=== PATIENT | male | born 1935 | race Caucasian/White ===

== ENCOUNTER 2016-11-18 06:03 | Inpatient (IN) | payer MEDICARE, OTHER ==
[~2016-11-18] VITALS: Ht 175.3 cm; Wt 81.2 kg
--- NOTE | 2016-11-18 06:05 | NUR ---
TO BED 4 BIB PARAMEDICS C/O L SIDED CEST PAIN RADIATING TO LEFT ARM 1 HR WARP CLAMPER. PT AAOX4 NO ACUTE DISTRESS NOTED, RESP EVEN AND UNLABORED, SKIN WARM NONDIAPHORETIC. PT WAS GIVEN ASPIRIN 162MG AND NITRO SPRAY X2 BY EMS WARP CLAMPER. PLACE PT ON CARDIAC MONITORING, CONTINUOUS POX.
--- NOTE | 2016-11-18 06:09 | NUR ---
DAPHNEY ZEE AT BEDSIDE TO ISAÍAS CAGE.
--- NOTE | 2016-11-18 06:13 | NUR ---
Dr Bustos at bedside to eval patient.
--- NOTE | 2016-11-18 06:15 | NUR ---
STARTED SL 18G TO R FOREARM, BLOOD DRAWN AND SENT TO LAB.
--- NOTE | 2016-11-18 06:25 | NUR ---
PT DAUGHTER AT BEDSIDE.
[2016-11-18] MEDS ORDERED: NITROGLYCERIN PACKET 1 GM PACKET ONE (06:27)
[2016-11-18] MEDS ORDERED: ASPIRIN 81 MG TAB.CHEW ONE (06:27)
[2016-11-18] MEDS ORDERED: ONDANSETRON HCL/PF 4 MG/2 ML VIAL IVP ONE (06:30)
[2016-11-18] MEDS ORDERED: MORPHINE SULFATE INJ 2 MG/ML DISP.SYRIN IV ONE (06:30)
[2016-11-18] MEDS ORDERED: ASPIRIN 325 MG TABLET PO ONE (06:30)
[2016-11-18] MEDS ORDERED: NITROGLYCERIN PACKET 1 GM PACKET TD ONE (06:30)
--- NOTE | 2016-11-18 06:30 | NUR ---
PT MEDICATED ORDERED.
[2016-11-18 06:47] LABS: BASOPHILS % (AUTO) 0.3 % (0.0-2.0); EOSINOPHILS # (AUTO) 0.3 /CMM (0.0-0.7); EOSINOPHILS % (AUTO) 5.3 % (0.0-6.0); HEMATOCRIT 36 % (39-51); HEMOGLOBIN 12.6 g/dL (13.5-17.5); LYMPHOCYTES # (AUTO) 2.1 /CMM (0.8-4.8); LYMPHOCYTES % (AUTO) 32.4 % (20.0-44.0); MEAN CORPUSCULAR HEMOGLOBIN 31 PG (26.0-33.0); MEAN CORPUSCULAR HGB CONC 35 g/dl (31.0-36.0); MEAN CORPUSCULAR VOLUME 87 fL (80-96); MONOCYTES # (AUTO) 0.5 /CMM (0.1-1.30); MONOCYTES % (AUTO) 8.5 % (2.0-12.0); NEUTROPHILS # (AUTO) 3.4 /CMM (1.8-8.9); NEUTROPHILS % (AUTO) 53.5 % (43.0-81.0); PLATELET COUNT (AUTO) 232 /CMM (150-450); RDW COEFFICIENT OF VARIATION 12.9 (11.5-15.0); RED BLOOD CELL COUNT(AUTO) 4.12 MIL/uL (4.5-6.0); WHITE BLOOD COUNT (AUTO) 6.4 K/uL (4.3-11.0)
[2016-11-18 06:48] LABS: CALCIUM, SERUM 8.6 mg/dL (8.5-10.1); CARBON DIOXIDE 27 mmol/L (21-32); CHLORIDE 109 mmol/L (98-107); CREATININE 0.9 mg/dL (0.6-1.3); GLUCOSE 98 mg/dL (74-106); POTASSIUM 3.7 mmol/L (3.5-5.1); SODIUM SERUM 145 mmol/L (136-145); UREA NITROGEN, BLOOD 31 mg/dL (7-18)
[2016-11-18 06:59] LABS: TROPONIN I 0.019 ng/mL (0.00-0.056)
[2016-11-18 07:01] LABS: INR 0.9 (0.87-1.13); PROTHROMBIN TIME 9.6 SECS (9.5-12.7)
--- NOTE | 2016-11-18 07:21 | NUR ---
REPORT GIVEN TO AM SHIFT GINA SANCHEZ.
--- NOTE | 2016-11-18 07:27 | NUR ---
PATIENT ON BED, VSS. AT BS
[2016-11-18] MEDS ORDERED: BENA40TA2 PO (07:31)
[2016-11-18] MEDS ORDERED: ASPI81TA2 PO (07:31)
[2016-11-18] MEDS ORDERED: SIMV40TA5 PO (07:31)
--- NOTE | 2016-11-18 08:05 | NUR ---
REPORT GIVEN TO GINA JOHNSON FOR CONTINUITY OF CARE
--- NOTE | 2016-11-18 08:15 | NUR ---
MS/RN New admission Patient admitted from emergency room with diaminos of chest pain. Patient fully admitted, awaiting further orders from Dr Ferguson.
[2016-11-18 08:30] VITALS: BP 133/55
[2016-11-18] MEDS ORDERED: LORAZEPAM 1 MG TABLET PO PRN (10:00)
[2016-11-18] MEDS: BENAZEPRIL HCL 20 MG TABLET PO SCH (10:00)
[2016-11-18] MEDS ORDERED: MORPHINE SULFATE INJ 2 MG/ML DISP.SYRIN IV PRN ×2 (10:00)
[2016-11-18] MEDS ORDERED: ONDANSETRON HCL/PF 4 MG/2 ML VIAL IVP PRN (10:00)
[2016-11-18] MEDS ORDERED: NITROGLYCERIN PACKET 1 GM PACKET TD PRN (10:00)
[2016-11-18] MEDS ORDERED: ACETAMINOPHEN 325 MG TABLET PO PRN (10:00)
[2016-11-18 10:29] LABS: IRON, SERUM 60 ug/dl (50-175); TOTAL IRON BINDING CAPACITY 200 ug/dl (250-450)
[2016-11-18 11:32] LABS: CHOLESTEROL 152 mg/dL (<200); HDL CHOLESTEROL 50 mg/dL (40-60); LDL 87 mg/dL (0-99); TRIGLYCERIDES 65 mg/dL (30-150)
[2016-11-18 12:00] VITALS: BP 123/58
[2016-11-18] MEDS: ISOSORBIDE MONONITRATE (30MG) 30 MG TAB.SR.24H PO SCH (15:49)
--- NOTE | 2016-11-18 15:52 | NUR ---
SENIOR MANUFACTURING ENGINEER Notes: - Imdur not given this time, due to decreased BP ( 111/54), patient still on the Nitropaste patch applied in ER.
[2016-11-18 16:00] VITALS: BP 111/54
--- NOTE | 2016-11-18 16:09 | NUR ---
- BATTERY TESTER AND REPAIRER Notes: - Patient was explained on the rationale of the SCD'S , & was actually applying them on but patient informed documenting RN that he prefers them applied during the NOC since he goes bathroom less during that time. Will report to NOC shift.
[2016-11-18] MEDS ORDERED: SIMVASTATIN 40 MG TABLET PO SCH (18:00)
--- NOTE | 2016-11-18 18:20 | NUR ---
SERVICE OBSERVER Notes: -patient just completed his dinner, denies pain, non-labored respirations, still on TELE, ambulated to bathroom without problems.
--- NOTE | 2016-11-18 19:27 | NUR ---
STEEL ERECTOR APPRENTICE NOTES RECEIVED RESTING COMFORTABLY ON BED,A/O X 4,DENIES CHEST PAIN AT THE MOMENT, NITRO PASTE IN PLACE.SALINE LOCK RFA INTACT AND PATENT. SCD HOLD AT THE MOMENT.PATIENT WANTS IT AT NIGHT TIME.BED ON LOW POSITION AND LOCK.CALL LIGHT IN REACH,NEEDS ANTICIPATED.
[2016-11-18 20:00] VITALS: BP 122/56
[2016-11-18] MEDS ORDERED: CARVEDILOL 3.125 MG TABLET PO SCH (21:00)
--- NOTE | 2016-11-18 21:00 | NUR ---
HEMSTITCHER NOTES OFFERED DVT PUMP BUT REFUSED.HE SAID HE WILL CALL WHEN HES READY FOR IT
--- NOTE | 2016-11-18 23:00 | NUR ---
TRACK REPAIR SUPERVISOR NOTES ASK DR YAO IF HE WANTS TO ORDER CHEMICAL PROPHYLAXIS,MADE AWARE OF DVT SCORE OF 3,THAT PATIENT HAS HX OF [place] 2008.MADE AWARE ALSO THAT PATIENT WAS SEEN BY CARDIO DR ARCINIEGA.HE SAID TO JUST VERIFY WITH DR ARCINIEGA WHY HE DIDNT ORDER CHEMICAL PROHYLAXIS.WILL FOLLOW UP IN THE MORNING.
[2016-11-19] VITALS: BP 116/56
[2016-11-19 00:06] VITALS: BP 116/56
[2016-11-19 04:23] VITALS: BP 120/58
[2016-11-19 06:50] LABS: BASOPHILS % (AUTO) 0.1 % (0.0-2.0); EOSINOPHILS # (AUTO) 0.3 /CMM (0.0-0.7); EOSINOPHILS % (AUTO) 3.9 % (0.0-6.0); HEMATOCRIT 33 % (39-51); HEMOGLOBIN 11.6 g/dL (13.5-17.5); LYMPHOCYTES # (AUTO) 1.6 /CMM (0.8-4.8); LYMPHOCYTES % (AUTO) 24.1 % (20.0-44.0); MEAN CORPUSCULAR HEMOGLOBIN 31 PG (26.0-33.0); MEAN CORPUSCULAR HGB CONC 35 g/dl (31.0-36.0); MEAN CORPUSCULAR VOLUME 88 fL (80-96); MONOCYTES # (AUTO) 0.5 /CMM (0.1-1.30); MONOCYTES % (AUTO) 7.5 % (2.0-12.0); NEUTROPHILS # (AUTO) 4.2 /CMM (1.8-8.9); NEUTROPHILS % (AUTO) 64.4 % (43.0-81.0); PLATELET COUNT (AUTO) 211 /CMM (150-450); RDW COEFFICIENT OF VARIATION 12.7 (11.5-15.0); WHITE BLOOD COUNT (AUTO) 6.5 K/uL (4.3-11.0)
[2016-11-19 06:52] VITALS: BP 141/60
--- NOTE | 2016-11-19 07:00 | NUR ---
PEDIATRICIAN NOTES FAIRLY RESTED AT NIGHT.NO CHANGE IN STATUS.REPORT GIVEN TO ALEX FUENTES FOR JEAN.
[2016-11-19 07:06] LABS: AMYLASE 42 U/L (25-115); CALCIUM, SERUM 8.6 mg/dL (8.5-10.1); CARBON DIOXIDE 26 mmol/L (21-32); CHLORIDE 108 mmol/L (98-107); CREATININE 0.8 mg/dL (0.6-1.3); GLUCOSE 89 mg/dL (74-106); LIPASE 167 U/L (73-393); MAGNESIUM 1.9 mg/dL (1.8-2.4); PHOSPHORUS 2.8 mg/dL (2.5-4.9); POTASSIUM 3.8 mmol/L (3.5-5.1); SODIUM SERUM 143 mmol/L (136-145); UREA NITROGEN, BLOOD 23 mg/dL (7-18)
--- NOTE | 2016-11-19 07:24 | NUR ---
MS/RN Patient received Patient received from shift stacker. Denies any further episodes of chest pain or discomfort. All needs attended. Call light within reach, will continue to monitor.
[2016-11-19 08:00] VITALS: BP 141/60
[2016-11-19 08:25] VITALS: BP 141/60
[2016-11-19] MEDS: BENAZEPRIL HCL 20 MG TABLET PO SCH (08:25)
[2016-11-19] MEDS: ISOSORBIDE MONONITRATE (30MG) 30 MG TAB.SR.24H PO SCH (08:25)
--- NOTE | 2016-11-19 08:27 | NUR ---
MS/RN Medications Morning medications administered as ordered.
[2016-11-19] MEDS ORDERED: ASPIRIN 81 MG TAB.CHEW PO SCH (09:00)
[2016-11-19] MEDS ORDERED: Isosorbide Mononitrate (30MG) PO (11:37)
--- NOTE | 2016-11-19 11:45 | NUR ---
MS/RN S/B Dr Ferguson Seen by Dr Ferguson - patient to be discharged to home, new prescription written and provided to patient for imdur SR.
--- NOTE | 2016-11-19 12:08 | NUR ---
MS/vp integrity Patient discharged to home in stable condition. Heplock, tele and name bands removed. Exit care printed and signed by patient. Education about signs and symptoms and when to return to the emergency room provided to patient, who stated that he understood. also at bedside and educated. Instructed to make follow up appointment for 5-10 days with primary care doctor (Dr Lundy). Per patient, stated that he would make his own appointment and at this time did not have the phone number of the office as this information was on his cell phone. Escorted to front door by LI, with Radha providing transport.
== END 2016-11-19 12:00 | disposition home or self-care (01) | DRG 303 ==
LOC: ER 06:05 → TELE 07:58
PROVIDERS: ADMIT Internal Medicine; ATTEND Internal Medicine
DX: I25.119 Atherosclerotic heart disease of native coronary artery with unspecified angina pectoris (principal); D63.8 Anemia in other chronic diseases classified elsewhere; I45.10 Unspecified right bundle-branch block; I10 Essential (primary) hypertension; E78.5 Hyperlipidemia, unspecified; I25.2 Old myocardial infarction; Z79.82 Long term (current) use of aspirin; Z79.899 Other long term (current) drug therapy; Z87.891 Personal history of nicotine dependence; Z98.61 Coronary angioplasty status
CPT/HCPCS: 36415; 71010-TC; 80048-TC; 80061-TC; 82150-TC; 83540-TC; 83690-TC; 83735-TC; 84100-TC; 84484-TC; 85025-TC; 85730-TC; 87081-TC; 93307-TC; A4606; Z7610

== ENCOUNTER 2020-07-11 22:03 | Emergency (ER) | payer BC, MEDICARE ==
[~2020-07-11] VITALS: Ht 177.8 cm; Wt 78.9 kg
[~2020-07-11 22:03] MED LIST: ASPI-1169 PO; BENA40TA8 PO; Isosorbide Mononitrate (30MG) PO; SIMV-49 PO
[2020-07-11] MEDS ORDERED: TDAP [DIPH/PERTUSSIS/TET] 0.5 ML VIAL IM ONE ×2 (22:18→22:30)
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
[2020-07-11] MEDS ORDERED: ACET325C7 PO (22:40)
[2020-07-11 22:54] VITALS: BP 124/76
== END 2020-07-11 22:55 | disposition home or self-care (01) ==
LOC: ER 22:09
DX: S01.01XA Laceration without foreign body of scalp, initial encounter (principal); S09.8XXA Other specified injuries of head, initial encounter; R51.9 Headache, unspecified; I10 Essential (primary) hypertension; Z95.5 Presence of coronary angioplasty implant and graft; Z79.82 Long term (current) use of aspirin; Z79.899 Other long term (current) drug therapy; Y04.8XXA Assault by other bodily force, initial encounter; Y93.01 Activity, walking, marching and hiking; Y92.89 Other specified places as the place of occurrence of the external cause; Y99.8 Other external cause status
CPT/HCPCS: 12002; 70450; 90471; 90715; 99284; A6403

== ENCOUNTER 2020-07-18 19:15 | Emergency (ER) | payer SELFPAY ==
[~2020-07-18] VITALS: Ht 177.8 cm; Wt 78.9 kg
[~2020-07-18 19:15] MED LIST changes: +ACET325C7 PO
[2020-07-18 20:35] VITALS: BP 148/68
== END 2020-07-18 20:52 | disposition home or self-care (01) ==
LOC: ER 19:23
DX: S01.01XD Laceration without foreign body of scalp, subsequent encounter (principal); I10 Essential (primary) hypertension; Z95.5 Presence of coronary angioplasty implant and graft; Z79.82 Long term (current) use of aspirin; Z79.899 Other long term (current) drug therapy; X58.XXXD Exposure to other specified factors, subsequent encounter

== ENCOUNTER 2021-04-10 07:40 | Inpatient (IN) | payer MEDICARE, BC ==
[~2021-04-10] VITALS: Ht 177.8 cm; Wt 76.7 kg
--- NOTE | 2021-04-10 07:40 | NUR ---
BIB RA 102 FROM HOME C/O CHEST TIGHTNESS, HEADACHE THAT STARTED AT 0300. ASPIRIN 325 GIVEN AUDITOR IN CHARGE AND RELIEVED CHEST TIGHTNESS. PT DENIES PAIN AND STATED IT DOES NOT RADIATE ANYWHERE. BLOOD PRESSURE WAS ELEVATED, MD AWARE. BREATHING IS EVEN AND UNLABORED, NO SOB NOTED, PT ON ROOM AIR.
--- NOTE | 2021-04-10 07:48 | NUR ---
IV ESTABLISHED R WRIST 20G. LABS WERE DRAWN AND COLLECTED AT BEDSIDE.
--- NOTE | 2021-04-10 08:18 | NUR ---
MOVE SHEET SUBMITTED.
--- NOTE | 2021-04-10 08:21 | NUR ---
RN ELIZABETH LABS AT BEDSIDE. TRANSPORTED TO MAIN LAB, PROCESSING
--- NOTE | 2021-04-10 08:22 | NUR ---
MARKY-COV2 SPEC COLLECTED BY LAB AT BEDSIDE
[2021-04-10 08:28] LABS: BASOPHILS % (AUTO) 0.5 % (0.0-2.0); EOSINOPHILS % (AUTO) 2.7 % (0.0-6.0); HEMATOCRIT 39 % (39-51); HEMOGLOBIN 13.4 g/dL (13.5-17.5); LYMPHOCYTES # (AUTO) 1.2 K/uL (0.8-4.8); LYMPHOCYTES % (AUTO) 20.8 % (20.0-44.0); MEAN CORPUSCULAR HGB CONC 34 g/dl (31.0-36.0); MEAN CORPUSCULAR VOLUME 90 fL (80-96); MONOCYTES # (AUTO) 0.5 K/uL (0.1-1.30); MONOCYTES % (AUTO) 8.1 % (2.0-12.0); NEUTROPHILS # (AUTO) 3.9 K/uL (1.8-8.9); NEUTROPHILS % (AUTO) 67.9 % (43.0-81.0); PLATELET COUNT (AUTO) 220 K/uL (150-450); RED BLOOD CELL COUNT(AUTO) 4.35 MIL/uL (4.5-6.0); WHITE BLOOD COUNT (AUTO) 5.8 K/uL (4.3-11.0)
[2021-04-10 08:48] LABS: CALCIUM, SERUM 8.8 mg/dL (8.5-10.1); CARBON DIOXIDE 28 mmol/L (21-32); CHLORIDE 104 mmol/L (98-107); CREATININE 1.1 mg/dL (0.6-1.3); GLUCOSE 98 mg/dL (74-106); SODIUM SERUM 140 mmol/L (136-145); UREA NITROGEN, BLOOD 20 mg/dL (7-18)
[2021-04-10] MEDS: ASPIRIN 81 MG TAB.CHEW PO SCH (09:32)
[2021-04-10] MEDS ORDERED: ASPIRIN 81 MG TAB.CHEW ONE (09:37)
[2021-04-10] MEDS ORDERED: ONDANSETRON HCL/PF 4 MG/2 ML VIAL IVP PRN (10:30)
[2021-04-10] MEDS ORDERED: MORPHINE SULFATE INJ 2 MG/ML DISP.SYRIN IV PRN (10:30)
[2021-04-10] MEDS ORDERED: HYDROCODONE/APAP 5/325MG TABLET PO PRN (10:30)
[2021-04-10] MEDS ORDERED: NITROGLYCERIN 0.4 MG/TAB BOTTLE SL PRN (10:30)
[2021-04-10] MEDS ORDERED: Z GUARD REMEDY 4 OZ OINT TP PRN (10:30)
[2021-04-10] MEDS ORDERED: ACETAMINOPHEN 325 MG TABLET PO PRN (10:30)
[2021-04-10] MEDS ORDERED: TEMAZEPAM 15 MG CAPSULE PO PRN (10:30)
[2021-04-10] MEDS ORDERED: MAGNESIUM HYDROXIDE 30 ML UDC PO PRN (10:30)
[2021-04-10] MEDS ORDERED: MAG HYDROX/AL HYDROX/SIMETH 30 ML UDC PO PRN (10:30)
--- NOTE | 2021-04-10 10:31 | NUR ---
Jack coyle in [facility] - 04/10/21 at 1840 by SUYAPA SPOKE TO NILES RAZA [phone]
--- NOTE | 2021-04-10 10:31 | NUR ---
SPOKE TO PT HANNAH [phone]
[2021-04-10] MEDS ORDERED: ENOXAPARIN SODIUM 40 MG/0.4 ML DISP.SYRIN SQ ONE (10:33)
[2021-04-10] MEDS: ENOXAPARIN SODIUM 40 MG/0.4 ML DISP.SYRIN SQ SCH (10:41)
[2021-04-10] MEDS: METOPROLOL TARTRATE 50 MG TABLET PO SCH ×2 (12:13→18:00)
[2021-04-10] MEDS ORDERED: METOPROLOL TARTRATE 50 MG TABLET ONE ×2 (12:37→17:57)
--- NOTE | 2021-04-10 12:40 | NUR ---
SPOKE TO SON MARILUZ [phone] WHO WOULD LIKE TO KNOW WHEN HIS FATHER IS TAKEN TO A ROOM WELL
--- NOTE | 2021-04-10 15:28 | NUR ---
PT RESTING COMFORTABLY IN BED, EASY TO AROUSE
--- NOTE | 2021-04-10 17:22 | NUR ---
GOT BED 316-1 AFTER CHANGE OF SHIFT.
[2021-04-10] MEDS ORDERED: SIMVASTATIN 40 MG TABLET PO SCH (18:00)
[2021-04-10] MEDS ORDERED: SIMVASTATIN 20 MG TABLET ONE (18:04)
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
--- NOTE | 2021-04-10 20:01 | NUR ---
REPORT GIVEN TO FINN
--- NOTE | 2021-04-10 20:03 | NUR ---
THE , HANNAH AND SON, MARILUZ WERE NOTIFIED THAT HE HAD GOTTEN A ROOM.
[2021-04-10 20:30] VITALS: BP 161/56
--- NOTE | 2021-04-10 20:35 | NUR ---
pt transferred with ACLS protocol.
--- NOTE | 2021-04-10 21:00 | NUR ---
DIE CUTTER APPRENTICE NOTES: RECEIVED PATIENT FROM ER VIA BED. AT BEDSIDE. PATIENT IS ALERT AND ORIENTED TO PERSON, PLACE, TIME AND SITUATION. CLEAR SPEECH, COMMUNICATIVE AND COOPERATIVE. [place], NO HEARING AIDS. LUNG SOUNDS CTA THROUGHOUT. STRONG AND PALPABLE DP AND RADIAL PULSES. NO PERIPHERAL EDEMA OBSERVED. ABD SOFT AND NON-TENDER, BS NORMOACTIVE X4. NAD AND VSS. EXTERNAL LEAD ETL DEVELOPER PLACED. DENIES PAIN. VS FOLLOWS: 161/56, 60, 18, 98.0, SpO2 98% ON RA. R FA IV FLUSHED WITHOUT COMPLICATION AND NO S/SX OF INFILTRATION. DRESSING TO SITE C/D/I. BED PLACED IN LOW, LOCKED POSITION. HOB ELEVATED 2O DEGREES FOR COMFORT. FLUIDS AT BEDSIDE TABLE. PATIENT DRINKING INDEPENDENTLY. PATIENT ORIENTED TO ROOM, CALL LIGHT, BED/TV REMOTE. DEMONSTRATES ABILITY TO USE CALL LIGHT AND VERBALIZE NEEDS EFFECTIVELY. CALL LIGHT WITHIN REACH. DISCUSSED ADMISSION PROCESS AND ASSESSMENT, PATIENT AGREEABLE AND GOOD HISTORIAN. DISCUSSED POLST. PATIENT'S WISHES ARE FULL CODE STATUS.
[2021-04-10 21:31] VITALS: BP 161/56
[2021-04-11] VITALS: BP 160/70
[2021-04-11] MEDS: METOPROLOL TARTRATE 50 MG TABLET PO SCH ×5 (01:14→23:06)
[2021-04-11] MEDS: IV NS 0.9% 1,000 ML IV PRN ×2 (01:16→11:48)
[2021-04-11] MEDS ORDERED: PANTOPRAZOLE 40 MG TABLET.DR PO ONE (06:16)
[2021-04-11] MEDS: PANTOPRAZOLE 40 MG TABLET.DR PO SCH (06:17)
[2021-04-11 06:36] LABS: BASOPHILS % (AUTO) 0.5 % (0.0-2.0); EOSINOPHILS % (AUTO) 4.3 % (0.0-6.0); HEMATOCRIT 36 % (39-51); HEMOGLOBIN 12.8 g/dL (13.5-17.5); LYMPHOCYTES # (AUTO) 1.8 K/uL (0.8-4.8); LYMPHOCYTES % (AUTO) 31.5 % (20.0-44.0); MEAN CORPUSCULAR HGB CONC 35 g/dl (31.0-36.0); MEAN CORPUSCULAR VOLUME 89 fL (80-96); MONOCYTES # (AUTO) 0.6 K/uL (0.1-1.30); MONOCYTES % (AUTO) 9.9 % (2.0-12.0); NEUTROPHILS # (AUTO) 3.1 K/uL (1.8-8.9); NEUTROPHILS % (AUTO) 53.8 % (43.0-81.0); PLATELET COUNT (AUTO) 190 K/uL (150-450); RED BLOOD CELL COUNT(AUTO) 4.11 MIL/uL (4.5-6.0); WHITE BLOOD COUNT (AUTO) 5.7 K/uL (4.3-11.0)
--- NOTE | 2021-04-11 07:25 | NUR ---
RN OPENING NOTE RECEIVED PATIENT IN BED. A/O X4. ON ROOM AIR, TOLERATING WELL. DENIES SOB. IN NO APPARENT DISTRESS. SB TO SR ON THE TELE MONITOR. R FA #20 G, NS RUNNING AT 100 ML/HR, INTACT AND PATENT. SAFETY MEASURES MAINTAINED. BED IN LOWEST POSITION, BRAKES LOCKED. SIDE RAILS UP X2. CALL LIGHT WITHIN REACH. WILL CONTINUE PLAN OF CARE.
[2021-04-11 07:28] LABS: CALCIUM, SERUM 8.5 mg/dL (8.5-10.1); MAGNESIUM 2.2 mg/dL (1.8-2.4); POTASSIUM 3.8 mmol/L (3.5-5.1)
--- NOTE | 2021-04-11 07:43 | NUR ---
PHOTOGRAPH TINTER CLOSING NOTES: REPORTED OFF TO ONCOMING RN. PATIENT IN NAD AND VSS AT THIS TIME. TELEMETRY READING SR/SB. PATIENT DENIES PAIN. MENTATION TO BASELINE. BED IN LOW, LOCKED POSITION. DEMONSTRATES ABILITY TO USE CALL LIGHT AND VERBALIZE NEEDS EFFECTIVELY. CALL LIGHT AND FREQUENTLY USED ITEMS WITHIN REACH.
[2021-04-11 08:00] VITALS: BP 155/58
[2021-04-11 08:48] LABS: THYROID STIMULATING HORMONE 3.625 uIU/mL (0.358-3.74)
[2021-04-11] MEDS: ENOXAPARIN SODIUM 40 MG/0.4 ML DISP.SYRIN SQ SCH (08:52)
[2021-04-11] MEDS: ASPIRIN 81 MG TAB.CHEW PO SCH (08:53)
[2021-04-11] MEDS: BENAZEPRIL HCL 20 MG TABLET PO SCH (08:53)
[2021-04-11 16:00] VITALS: BP 131/48
[2021-04-11] MEDS: SIMVASTATIN 20 MG TABLET PO SCH (17:06)
--- NOTE | 2021-04-11 18:43 | NUR ---
RN CLOSING NOTE PATIENT RESTING IN BED. A/O X4. ON ROOM AIR, TOLERATING WELL. DENIES SOB. NO S/S OF RESPIRATORY DISTRESS. R FA #20 G, NS RUNNING AT 100 ML/HR, INTACT AND PATENT. DUE MEDS GIVEN ORDERED. ALL NEEDS HAVE BEEN MET AND ATTENDED. SAFETY MEASURES MAINTAINED. BED IN LOWEST POSITION, BRAKES LOCKED. SIDE RAILS UP X2. CALL LIGHT WITHIN REACH. WILL ENDORSE CONTINUITY OF CARE TO ONCOMING SHIFT.
--- NOTE | 2021-04-11 19:00 | NUR ---
MS RN OPENING NOTE: RECEIVED REPORT. ASSESSED PATIENT. NO CHANGE IN PATIENT'S DISPOSITION FROM PREVIOUS CLOSING NOTE ASSESSMENT. FAMILY ( AND DAUGHTER) AT BEDSIDE. PATIENT DENIES CP OR EPIGASTRIC DISTRESS, MENTATION TO BASELINE. DEMONSTRATES ABILITY TO USE CALL LIGHT AND VERBALIZE NEEDS EFFECTIVELY. CALL LIGHT, FLUIDS AND FREQUENTLY USED ITEMS WITHIN REACH.
[2021-04-11 20:00] VITALS: BP 130/51
[2021-04-12] MEDS: PANTOPRAZOLE 40 MG TABLET.DR PO SCH (06:06)
[2021-04-12] MEDS: METOPROLOL TARTRATE 50 MG TABLET PO SCH ×4 (06:07→23:20)
[2021-04-12 06:28] LABS: BASOPHILS % (AUTO) 0.8 % (0.0-2.0); EOSINOPHILS % (AUTO) 3.7 % (0.0-6.0); HEMATOCRIT 35 % (39-51); HEMOGLOBIN 12.2 g/dL (13.5-17.5); LYMPHOCYTES # (AUTO) 1.7 K/uL (0.8-4.8); LYMPHOCYTES % (AUTO) 30.7 % (20.0-44.0); MEAN CORPUSCULAR HGB CONC 35 g/dl (31.0-36.0); MEAN CORPUSCULAR VOLUME 89 fL (80-96); MONOCYTES # (AUTO) 0.5 K/uL (0.1-1.30); MONOCYTES % (AUTO) 9.3 % (2.0-12.0); NEUTROPHILS # (AUTO) 3.1 K/uL (1.8-8.9); NEUTROPHILS % (AUTO) 55.5 % (43.0-81.0); PLATELET COUNT (AUTO) 170 K/uL (150-450); RED BLOOD CELL COUNT(AUTO) 3.91 MIL/uL (4.5-6.0); WHITE BLOOD COUNT (AUTO) 5.6 K/uL (4.3-11.0)
--- NOTE | 2021-04-12 06:58 | NUR ---
MS RN CLOSING NOTE: PATIENT SLEPT WELL THROUGHOUT THE NIGHT. EASILY AROUSED TO VOICE COMMAND. A&OX4. NAD AND VSS. DENIES CHEST PAIN AND NO S/SX OF SOB/RESPIRATORY DISTRESS. IV TO R FA #20 INFUSING NS @ 100ML/HR. NO INFILTRATION/ERYTHEMA NOTES TO OR SURROUNDING INSERTION SITE. DRESSING C/D/I. BED IN LOW, LOCKED POSITION. SIDE RAILS UP X2. DEMONSTRATES ABILITY TO USE CALL LIGHT AND VERBALIZE NEEDS EFFECTIVELY. CALL LIGHT AND FREQUENTLY USED ITEMS WITHIN REACH.
[2021-04-12 07:02] LABS: CALCIUM, SERUM 8.5 mg/dL (8.5-10.1); CREATININE 1.1 mg/dL (0.6-1.3); POTASSIUM 3.6 mmol/L (3.5-5.1)
--- NOTE | 2021-04-12 07:21 | NUR ---
MS RN OPENING NOTE RECEIVED PATIENT IN BED. A/O X4. BREATHING EVENLY AND NONLABORED ON ROOM AIR, TOLERATING WELL. DENIES SOB. IN NO APPARENT DISTRESS. PATIENT NPO FOR PROCEDURE R FA #20 G, NS RUNNING AT 100 ML/HR, INTACT AND PATENT. SAFETY MEASURES MAINTAINED. BED IN LOWEST POSITION, BRAKES LOCKED. SIDE RAILS UP X2. CALL LIGHT WITHIN REACH. WILL CONTINUE TO MONITOR
[2021-04-12] MEDS: ASPIRIN 81 MG TAB.CHEW PO SCH (08:06)
[2021-04-12] MEDS: BENAZEPRIL HCL 20 MG TABLET PO SCH (08:07)
[2021-04-12] MEDS: ENOXAPARIN SODIUM 40 MG/0.4 ML DISP.SYRIN SQ SCH (08:07)
[2021-04-12] MEDS ORDERED: NITROGLYCERIN 0.4 MG/TAB BOTTLE SL ONE (09:00)
[2021-04-12] MEDS ORDERED: METOPROLOL TARTRATE INJ 5 MG/5 ML AMPUL IVP PRN (09:00)
[2021-04-12] MEDS ORDERED: METOPROLOL TARTRATE INJ 5 MG/5 ML AMPUL ONE (09:05)
[2021-04-12] MEDS ORDERED: IOHEXOL-350 100 ML VIAL IV ONE ×2 (09:09→09:37)
[2021-04-12 09:13] VITALS: BP 140/60
[2021-04-12] MEDS ORDERED: IV NS 0.9% 250 ML IV ONE (09:37)
--- NOTE | 2021-04-12 11:27 | NUR ---
RN NOTE METOPROLOL DUE HELD PER PARAMETERS OF HR @ 45. WILL CONTINUE TO MONITOR
[2021-04-12 15:56] VITALS: BP 160/67
[2021-04-12] MEDS: SIMVASTATIN 20 MG TABLET PO SCH (17:12)
--- NOTE | 2021-04-12 18:26 | NUR ---
MS RN CLOSING NOTE PATIENT IN BED. A/O X4. BREATHING EVENLY AND NONLABORED ON ROOM AIR, TOLERATING WELL. DENIES SOB. IN NO APPARENT DISTRESS. PATIENT NPO FOR PROCEDURE R FA #20 G, NS RUNNING AT 100 ML/HR, INTACT AND PATENT. ALL MEDICATIONS GIVEN ORDERED. SAFETY MEASURES MAINTAINED. BED IN LOWEST POSITION, BRAKES LOCKED. SIDE RAILS UP X2. CALL LIGHT WITHIN REACH. WILL ENDORSE TO ONCOMING SHIFT
[2021-04-12 19:00] VITALS: BP 181/67
--- NOTE | 2021-04-12 19:05 | NUR ---
MS RN OPENING NOTE: RECEIVED REPORT. ASSESSED PATIENT. PATIENT ADAMANTLY REFUSING IV FLUIDS TO THE POINT OF BECOMING IRATE YELLING, "I DON'T WANT IV FLUIDS!!! I AM FINE WITHOUT THEM!!! I TOLD THEM I DON'T WANT THEM AND I WANT IT OFF!!" NS INFUSION HELD PER PATIENT'S REFUSAL. OTHERWISE PATIENT'S VSS, PATIENT DENIES CHEST PAIN. R FA #20 TO SL. R AC #18 TO SL. BOTH FLUSHED AND WITHOUT S/SX OF INFILTRATION/ERYTHEMA TO OR SURROUNDING INSERTION SITE. BED IN LOW, LOCKED POSITION. SIDE RAILS UP X2. DEMONSTRATES ABILITY TO USE CALL LIGHT AND VERBALIZE NEEDS EFFECTIVELY. CALL LIGHT WITHIN REACH.
[2021-04-13 03:09] VITALS: BP 148/68
[2021-04-13] MEDS: METOPROLOL TARTRATE 50 MG TABLET PO SCH ×4 (06:25→23:04)
--- NOTE | 2021-04-13 06:27 | NUR ---
MS RN CLOSING NOTE PATIENT LYING IN BED, EASILY AROUSED TO VOICE COMMAND. ALERT AND ORIENTED X4. VSS, NAD, DENIES CHEST PAIN AT THIS TIME. R FA #20 TO SL. R AC #18 TO SL D/T PATIENT'S REFUSAL OF CONTINUOUS IV FLUIDS. NO S/SX OF INFILTRATION/ERYTHEMA TO OR SURROUNDING INSERTION SITE. BED IN LOW, LOCKED POSITION. SIDE RAILS UP X2. DEMONSTRATES ABILITY TO USE CALL LIGHT AND VERBALIZE NEEDS EFFECTIVELY. CALL LIGHT WITHIN REACH.
[2021-04-13] MEDS: PANTOPRAZOLE 40 MG TABLET.DR PO SCH (06:46)
--- NOTE | 2021-04-13 07:16 | NUR ---
MS RN OPENING NOTE RECEIVED PATIENT IN BED. A/O X4. BREATHING EVENLY AND NONLABORED ON ROOM AIR, TOLERATING WELL. DENIES SOB. IN NO APPARENT DISTRESS. NO PAIN OR DISCOMFORT. IV ACCESS NOTED ON R FA #20 G, NS RUNNING AT 100 ML/HR, INTACT AND PATENT. SAFETY MEASURES MAINTAINED. BED IN LOWEST POSITION, BRAKES LOCKED. SIDE RAILS UP X2. CALL LIGHT WITHIN REACH. WILL CONTINUE TO MONITOR
[2021-04-13 08:00] VITALS: BP 169/76
[2021-04-13] MEDS: ASPIRIN 81 MG TAB.CHEW PO SCH (08:26)
[2021-04-13] MEDS: ENOXAPARIN SODIUM 40 MG/0.4 ML DISP.SYRIN SQ SCH (08:27)
[2021-04-13] MEDS: BENAZEPRIL HCL 20 MG TABLET PO SCH (08:27)
[2021-04-13 16:00] VITALS: BP 144/61
[2021-04-13] MEDS: SIMVASTATIN 20 MG TABLET PO SCH (17:00)
--- NOTE | 2021-04-13 18:32 | NUR ---
MS RN CLOSING NOTE PATIENT IN BED. A/O X4. BREATHING EVENLY AND NONLABORED ON ROOM AIR, TOLERATING WELL. DENIES SOB. IN NO APPARENT DISTRESS. PATIENT WILL BE NPO FOR PROCEDURE POST MIDNIGHT, R FA #20 G, NS RUNNING AT 100 ML/HR, INTACT AND PATENT. ALL MEDICATIONS GIVEN ORDERED. SAFETY MEASURES MAINTAINED. BED IN LOWEST POSITION, BRAKES LOCKED. SIDE RAILS UP X2. CALL LIGHT WITHIN REACH. WILL ENDORSE TO ONCOMING SHIFT
[2021-04-13 20:00] VITALS: BP 167/64
--- NOTE | 2021-04-13 20:32 | NUR ---
[id number] Addendum: 04/13/21 at 2033 by CRISPIN CANO RN COMPUTER SAVE ERROR
--- NOTE | 2021-04-13 20:33 | NUR ---
RN NOTE PT CONTINUES TO REFUSE IV FLUIDS DESPITE EXPLANATION, STATING "I DON'T WANT IV'S!" NOTED IV SITE ON R-FA WAS LEAKING OUT, AND IV SITE ON R-AC DISLODGED. REMOVED BOTH. PT REFUSES TO HAVE IV REINSERTED. PT AWARE OF PLANNED CARDIAC CATH PROCEDURE TOMORROW AND NPO AFTER MIDNIGHT. PT VERBALIZED UNDERSTANDING, BUT CONTINUES TO REFUSE IV'S AT THIS TIME. WILL CONT TO MONITOR.
[2021-04-14] MEDS: METOPROLOL TARTRATE 50 MG TABLET PO SCH ×3 (05:12→18:31)
--- NOTE | 2021-04-14 07:15 | NUR ---
MS RN OPENING NOTES RECEIVED PATIENT ON BED, AWAKE, READING A BOOK, NO SIGNS OF ACUTE DISTRESS NOTED. ON ROOM AIR, BREATHING EVEN AND UNLABORED, NO SOB NOTED. NO IV ACCESS AT THIS TIME, PER NOC NURSE IV'S WE'RE DISLODGED, PATIENT REFUSED IV REINSERTION AT THIS TIME. PREFERS TO DO IT LATER PRIOR TO HIS PROCEDURE. REMAINS ON NPO EXCEPT MEDS. SAFETY MEASURES IN PLACE, BED LOCKED AND IN LOWEST POSITION, SR UP X2, CALL LIGHT PLACED WITHIN EASY REACH. WILL CONTINUE TO MONITOR.
--- NOTE | 2021-04-14 07:15 | NUR ---
RN NOTES PT RESTING IN BED, AWAKE, READING A BOOK. DENIES ANY BODY PAIN, DENIES ANY CHEST PAIN. RESPIRATIONS EVEN/UNLABORED. PT AMBULATES TO BR INDEPENDENTLY, SUPERVISION PROVIDED. PT CONTINUES TO REFUSE IVF/IV REINSERTION AT THIS TIME, STATES, "MAYBE LATER." ENDORSED TO NEXT SHIFT NURSE. PT NPO SINCE MIDNIGHT FOR PLANNED CARDIAC CATH LATER TODAY. SAFETY INSTRUCTIONS REINFORCED AND PT VERBALIZED UNDERSTANDING. ALL NEEDS ATTENDED TO.
[2021-04-14 08:15] VITALS: BP 180/60
[2021-04-14] MEDS: PANTOPRAZOLE 40 MG TABLET.DR PO SCH (08:31)
[2021-04-14] MEDS: BENAZEPRIL HCL 20 MG TABLET PO SCH (08:32)
[2021-04-14] MEDS: ENOXAPARIN SODIUM 40 MG/0.4 ML DISP.SYRIN SQ SCH (08:44)
[2021-04-14] MEDS: ASPIRIN 81 MG TAB.CHEW PO SCH (08:44)
--- NOTE | 2021-04-14 13:45 | NUR ---
RN NOTES PATIENT PICKED UP FOR CARDIAC CATH PROCEDURE. IN STABLE CONDITION.
[2021-04-14] MEDS ORDERED: IV SET PRIMARY PUMP SET 1 EA INFUS.SET MC ONE (13:53)
[2021-04-14] MEDS ORDERED: IV NS 0.9% 500 ML IV ONE (13:53)
[2021-04-14] MEDS ORDERED: LIDOCAINE HCL/MPF 1% 30 ML VIAL IJ ONE (13:54)
[2021-04-14] MEDS ORDERED: MIDAZOLAM HCL 2 MG/2ML VIAL ONE (13:54)
[2021-04-14] MEDS ORDERED: NITROGLYCERIN IN 5 % DEXTROSE 250 ML IV ONE (13:54)
[2021-04-14] MEDS ORDERED: IODIXANOL 150 ML IV ONE (13:54)
[2021-04-14] MEDS ORDERED: FENTANYL PF 100MCG/2ML AMPUL ONE (13:54)
[2021-04-14] MEDS ORDERED: NICARDIPINE HCL 25 MG/10 ML VIAL IV ONE (14:49)
[2021-04-14] MEDS ORDERED: IODIXANOL 320MG/ML 50 ML IV ONE (15:00)
[2021-04-14] MEDS ORDERED: HEPARIN SODIUM, PORCINE 5000 UNITS/1 ML VIAL ONE (15:01)
[2021-04-14] MEDS ORDERED: HEPARIN SODIUM, PORCINE 1,000 UNIT/ML VIAL ONE (15:01)
[2021-04-14] MEDS ORDERED: TICAGRELOR 90 MG TABLET PO ONE (15:24)
--- NOTE | 2021-04-14 16:08 | NUR ---
RN NOTES SPOKE WITH OWEN PARDO RN FROM HUMAN SERVICE COORDINATOR. PATIENT WILL BE GOING TO ICU AFTER CARDIAC CATHETERIZATION. FAMILY AWARE.
--- NOTE | 2021-04-14 16:15 | NUR ---
ADMINISTRATIVE ASSISTANT FRONT DESK NOTES RECEIVED PT FROM CONSTRUCTION PRODUCER. AWAKE, A/O X4. STABLE ON ROOM AIR. S/P STENT X2. DRESSING C/D/I. DISTAL PULSES ARE PALPABLE. DENIES PAIN. WILL CONTINUE TO MONITOR.
[2021-04-14 16:30] VITALS: BP 155/67
[2021-04-14 17:00] VITALS: BP 162/77
--- NOTE | 2021-04-14 17:15 | NUR ---
RN NOTES PER DR. MARTÍNEZ, DOWNGRADE TO TELE AFTER 2 HRS BEDREST AND RESUME PREVIOUS DIET. ORDERS CARRIED OUT.
--- NOTE | 2021-04-14 18:00 | NUR ---
RN NOTES TRANSFERRED PT TO 3W ROOM 116-1 PER PROTOCOL. BEDSIDE REPORT GIVEN TO JAKUB FUENTES FOR JEAN. VS STABLE. DENIES PAIN. STABLE ON ROOM AIR. NOT IN DISTRESS.
--- NOTE | 2021-04-14 18:10 | NUR ---
RN NOTES RECEIVED PT FROM ICU VIA BED, ACCOMPANIED BY GINA SANTOS. BEDSIDE REPORT DONE. PATIENT IN STABLE CONDITION. DIET UPGRADED. WILL CONTINUE TO MONITOR.
[2021-04-14] MEDS: SIMVASTATIN 20 MG TABLET PO SCH (18:31)
--- NOTE | 2021-04-14 18:54 | NUR ---
MS RN CLOSING NOTES PATIENT IN BED, AWAKE. A/O X4, VERBALLY RESPONSIVE. BACK FROM ICU, VITAL SIGNS STABLE. DIET RESUMED, ABLE TO TOLERATE WELL. S/P CARDIAC CATHETERIZATION, WITH 2.STENT PLACEMENT. SITE ON RIGHT FEMORAL WITH DRESSING C/D/I. IV ACCESS ON LFA #18g INTACT. PATIENT STILL REFUSES IVF, SAYING HE DOESN'T NEED IV. ALL DUE MEDS GIVEN. SAFETY MEASURE IN PLACE. BED LOCKED AND IN LOWEST POSITION, SR UP X2, CALL LIGHT PLACED WITHIN EASY REACH. WILL ENDORSE TO NEXT SHIFT.
--- NOTE | 2021-04-14 19:09 | NUR ---
MS RN OPENING NOTES PATIENT IN BED, AWAKE. A/O X4, VERBALLY RESPONSIVE. S/P CARDIAC CATHETERIZATION, WITH 2.STENT PLACEMENT. SITE ON RIGHT FEMORAL WITH DRESSING C/D/I. IV ACCESS ON LFA #18g INTACT. PATIENT STILL REFUSES IVF, SAYING HE DOESN'T NEED IV. SAFETY MEASURE IN PLACE. BED LOCKED AND IN LOWEST POSITION, SR UP X2, CALL LIGHT PLACED WITHIN EASY REACH. WILL CONTINUE TO MONITOR.
[2021-04-14 20:00] VITALS: BP 154/58
--- NOTE | 2021-04-14 20:00 | NUR ---
RN NOTES PT REPORTING SHORTNESS OF BREATH ASSESSES PT NO CYANOSIS NOTED O2 SAT CHECKED O2 SAT 97% RAISED PT HEAD OF BED. PT NOT REPORTING PAIN AT THIS TIME. WILL CONTINUE TO MONITOR.
--- NOTE | 2021-04-14 20:27 | NUR ---
RN NOTES MANAGER OF COMPLIANCE REPORTED PT WAS HAVING SHORTNESS OF BREATH. WHEN TO PTS ROOM CHECKED VITALS PT NOTED GRIMACING. PT STATED HE WAS HAVING GENERALIZED PAIN AND SHORTNESS OF BREATH. CHECKED VITAL SIGNS VITAL SIGNS STABLE. WHEN TO GRAB ENOCH VILLALOBOS WHEN IN ROOM PT IS NOW REPORTING CHEST PAIN. MD CONTACTED ME I REPORTED PTS SYMPTOMS DR ORDERED STAT EKG AND CHEST S RAY ORDERS NOTED AND CARRIED OUT. CONTACTED RADIOLOGY AND RT REGARDING STAT ORDERS. PLACED PT ON 1L O2 VIA NC FOR COMFORT WILL CONTINUE TO MONITOR.
--- NOTE | 2021-04-14 20:35 | NUR ---
RN NOTES CHECKED ON PT PT NOT REPORTING SHORTNESS OF BREATH OR PAIN AT THIS TIME. NO DISTRESS NOTED. WILL CONTINUE TO MONITOR. Addendum: 04/14/21 at 2147 by PETER TORRES RN WRONG TIME CORRECT TIME 2014
--- NOTE | 2021-04-14 21:35 | NUR ---
RN NOTES RADIOLOGY IN ROOM WITH PT.
--- NOTE | 2021-04-14 21:45 | NUR ---
RN NOTES RT AT BEDSIDE
--- NOTE | 2021-04-14 21:58 | NUR ---
TELE NO NOTES RECEIVED NOTED TO PLACE PT ON TELE AND STAT TROPONIN AND TROPONIN AGAIN IN [id number] ORDERS NOTED AND CARRIED OUT.
--- NOTE | 2021-04-15 00:24 | NUR ---
VOICE SYSTEMS ENGINEER NOTES PT REFUSED BP MEDS RISK AND BENEFITS EXPLAINED X3 PT STATED " LEAVE ME ALONE ! YOU PEOPLE JUST DON'T LET ME SLEEP KEEP BOTHERING ME EVERY EVERY FIVE MINUTES! YOU JUST CHECKED MY BLOOD PRESSURE ! I DON'T NEED THAT MEDICATION ! NOW LEAVE ! IM TIRED OF YOU, DON'T BOTHER ME AGAIN !" WILL CONTINUE TO MONITOR PT.
--- NOTE | 2021-04-15 00:31 | NUR ---
HUMAN RESOURCES BENEFITS MANAGER NOTES REPORTED TROPONIN LEVEL TO MD PER PT JUST CHECK PTS TROPONIN WITH 5 AM LABS. ORDERS WILL BE CARRIED OUT. WILL CONTINUE TO MONITOR PT.
[2021-04-15] MEDS: METOPROLOL TARTRATE 50 MG TABLET PO SCH ×4 (05:29→17:19)
--- NOTE | 2021-04-15 06:28 | NUR ---
ROOF CEMENT AND PAINT MAKER HELPER OPENING NOTES PATIENT IN BED, AWAKE. A/O X4, VERBALLY RESPONSIVE. S/P CARDIAC CATHETERIZATION, WITH 2.STENT PLACEMENT. SITE ON RIGHT FEMORAL WITH DRESSING C/D/I. IV ACCESS ON LFA #18g INTACT. PATIENT STILL REFUSES IVF, SAYING HE DOESN'T NEED IV STILL. SAFETY MEASURE IN PLACE. BED LOCKED AND IN LOWEST POSITION, SR UP X2, CALL LIGHT PLACED WITHIN EASY REACH. ON TELE MONITOR READING SINUS IRIS WITH BBB 50S WILL CONTINUE TO MONITOR.
--- NOTE | 2021-04-15 06:54 | NUR ---
SUPERVISOR DOCK NOTES PTS TROPONIN 0.144 LAB VALUE REPORTED TO MD NO NEW ORDERS AT THIS TIME JUST CONTINUE MONITORING PT HE WILL BE SEEN BY DR HIGHTOWER TODAY. WILL ENDORSE TO DAY SHIFT NURSE.
--- NOTE | 2021-04-15 07:39 | NUR ---
RN OPENING NOTES Patient seen comfortably lying in bed, no apparent distress noted, respirations even and unlabored, no SOB, denies any pain or discomfort at this time, no grimacing. Call light left within reach, safety precautions in place, brakes locked, side rails up X 2, will monitor closely for any changes.
[2021-04-15] MEDS: ASPIRIN 81 MG TAB.CHEW PO SCH (10:13)
[2021-04-15] MEDS: TICAGRELOR 90 MG TABLET PO SCH ×2 (10:13→17:19)
[2021-04-15] MEDS: PANTOPRAZOLE 40 MG TABLET.DR PO SCH (10:14)
[2021-04-15] MEDS: BENAZEPRIL HCL 20 MG TABLET PO SCH (10:14)
[2021-04-15] MEDS: ENOXAPARIN SODIUM 40 MG/0.4 ML DISP.SYRIN SQ SCH (10:15)
[2021-04-15] MEDS ORDERED: TICA90TA PO (17:04)
[2021-04-15 17:19] VITALS: BP 143/66
[2021-04-15] MEDS: SIMVASTATIN 20 MG TABLET PO SCH (17:19)
--- NOTE | 2021-04-15 18:19 | NUR ---
Patient to be discharged home today, no apparent distress noted, no shortness of breath, respirations even and unlabored, no dizziness, no palpitations, no chest pain. Patient made aware of the situation, he signed all discharge paper works, all belongings taken, inventory list signed by patient. Health teaching provided, verbalized understanding and gratitude. Reminded resident to picker and packer new prescriptions, verbalized understanding and gratitude. Skin assessment done prior to discharge, skin intact, warm to touch, no pallor or cyanosis noted. Peripheral IV line on left forearm removed prior to discharge, complete and intact, no excessive bleeding noted, site covered with dry dressing. Name wristband removed prior to discharge, surgical mask provided for patient to use. MOLDER BENCH assisted patient going to the hospital parking lot via wheelchair, left unit at 1540pm with , stable condition, exit care documents handed to patient.
== END 2021-04-15 17:43 | disposition home or self-care (01) | DRG 247 ==
LOC: ER 07:44 → TELE 20:28 → MED 04-11 10:33 → ICU 04-14 16:23 → TELE 04-14 18:22
PROVIDERS: ADMIT Nurse Practitioner Acute Care; ATTEND Nurse Practitioner Acute Care
PROC: 4A023N7 Measurement of Cardiac Sampling and Pressure, Left Heart, Percutaneous Approach (ICD-10-PCS; principal; 2021-04-14)
PROC: 027135Z Dilation of Coronary Artery, Two Arteries with Two Drug-eluting Intraluminal Devices, Percutaneous Approach (ICD-10-PCS; 2021-04-14)
PROC: 02C03ZZ Extirpation of Matter from Coronary Artery, One Artery, Percutaneous Approach (ICD-10-PCS; 2021-04-14)
PROC: B211YZZ Fluoroscopy of Multiple Coronary Arteries using Other Contrast (ICD-10-PCS; 2021-04-14)
PROC: 4A033BC Measurement of Arterial Pressure, Coronary, Percutaneous Approach (ICD-10-PCS; 2021-04-14)
DX: I25.110 Atherosclerotic heart disease of native coronary artery with unstable angina pectoris (principal); E78.5 Hyperlipidemia, unspecified; I11.0 Hypertensive heart disease with heart failure; I25.2 Old myocardial infarction; I50.9 Heart failure, unspecified; Z95.5 Presence of coronary angioplasty implant and graft; Z20.822 Contact with and (suspected) exposure to COVID-19; Z79.02 Long term (current) use of antithrombotics/antiplatelets; Z87.891 Personal history of nicotine dependence
CPT/HCPCS: 36415; 71045-TC; 75574; 80048-TC; 83735-TC; 84100-TC; 84443-TC; 84484-TC; 85025-TC; 85610-TC; 85730-TC; 87081-TC; 92980; 92981; 93307-TC; C1725; C1769; C1887; C1894; C9803; G0378; G0500; J1644; J1650; J2250; J3010; J3490; J7030; J7040; J7050; Q9967